=== PATIENT | male | born 1970 | race Caucasian/White ===

== ENCOUNTER 2019-12-17 08:40 | Outpatient (CLI) | payer OTHER ==
[~2019-12-17 08:40] MED LIST: CHOL10002 PO; HYDR-4353 PO; IBUP-1984 PO; LORA10TA7 PO
== END 2019-12-17 23:59 | disposition home or self-care (01) ==
LOC: RAD 08:40
PROVIDERS: ATTEND Physician Assistant Surgical
DX: M47.26 Other spondylosis with radiculopathy, lumbar region (principal); M48.061 Spinal stenosis, lumbar region without neurogenic claudication
CPT/HCPCS: 72148

== ENCOUNTER 2020-12-18 13:39 | Outpatient (CLI) | payer BC, OTHER | END 2020-12-18 23:59 | disposition home or self-care (01) | LOC: CARD DIAG 13:39 | PROVIDERS: ATTEND Internal Medicine Interventional Cardiology | DX: I08.0 Rheumatic disorders of both mitral and aortic valves (principal); E78.5 Hyperlipidemia, unspecified; Z82.49 Family history of ischemic heart disease and other diseases of the circulatory system | CPT/HCPCS: 93306 ==

== ENCOUNTER 2021-01-22 08:39 | Outpatient (CLI) | payer BC | END 2021-01-22 23:59 | disposition home or self-care (01) | LOC: 64 CT 08:39 | PROVIDERS: ATTEND Family Medicine | DX: R22.2 Localized swelling, mass and lump, trunk (principal) | CPT/HCPCS: 71250 ==

== ENCOUNTER 2021-06-12 08:25 | Day surgery (SDC) | payer BC ==
[~2021-06-12] VITALS: Ht 180.3 cm; Wt 96.3 kg
[2021-06-12 08:35] VITALS: BP 152/92
[2021-06-12] MEDS ORDERED: fentaNYL/PF 50MCG/1 ML 2ML syringe ONE (08:38)
[2021-06-12] MEDS ORDERED: MIDAZolam 1 MG/ML 5ML VIAL ONE (08:38)
[2021-06-12] MEDS ORDERED: AMPH10TA23 PO (08:42)
[2021-06-12 10:15] VITALS: BP 123/81
[2021-06-12 10:25] VITALS: BP 118/72
[2021-06-12 10:35] VITALS: BP 120/74
[2021-06-12 10:45] VITALS: BP 119/75
== END 2021-06-12 10:50 | disposition home or self-care (01) ==
LOC: GI LAB 08:25
PROVIDERS: ATTEND Internal Medicine Gastroenterology
DX: Z12.11 Encounter for screening for malignant neoplasm of colon (principal); K63.5 Polyp of colon; K64.8 Other hemorrhoids; Z98.890 Other specified postprocedural states
CPT/HCPCS: 45380; 45385; 99152; 99153; C1773; J2250; J3010; J7040; Z7512; A4620

== ENCOUNTER 2022-02-04 09:56 | Outpatient (CLI) | payer BC ==
[~2022-02-04 09:56] MED LIST changes: +AMPH10TA23 PO; -IBUP-1984 PO
== END 2022-02-04 23:59 | disposition home or self-care (01) ==
LOC: RAD 09:56
PROVIDERS: ATTEND Nurse Practitioner Family
DX: J34.2 Deviated nasal septum (principal); R51.9 Headache, unspecified
CPT/HCPCS: 70150

== ENCOUNTER 2023-08-05 10:41 | Outpatient (CLI) | payer BC | END 2023-08-05 23:59 | disposition home or self-care (01) | LOC: RAD 10:41 | PROVIDERS: ATTEND Physician Assistant Surgical | DX: M54.50 Low back pain, unspecified (principal); M25.80 Other specified joint disorders, unspecified joint | CPT/HCPCS: 72110 ==

== ENCOUNTER 2024-09-10 12:32 | Outpatient (CLI) | payer BC | END 2024-09-10 23:59 | disposition home or self-care (01) | LOC: MRI 12:32 | PROVIDERS: ATTEND Family Medicine | DX: M51.27 Other intervertebral disc displacement, lumbosacral region (principal); M48.07 Spinal stenosis, lumbosacral region | CPT/HCPCS: 72148 ==